=== PATIENT | female | born 1985 | race Caucasian/White ===

== ENCOUNTER 2016-11-05 15:01 | Emergency (ER) | payer OTHER ==
[~2016-11-05] VITALS: Ht 165.1 cm; Wt 68.0 kg
[2016-11-05] MEDS ORDERED: NAPROSYN500 MG PO (15:54)
[2016-11-05] MEDS ORDERED: HYDROCODONE-AP1 EAC6 PO (15:54)
== END 2016-11-05 16:23 | disposition home or self-care (01) ==
LOC: ER 15:01
DX: K08.89 Other specified disorders of teeth and supporting structures (principal); F17.210 Nicotine dependence, cigarettes, uncomplicated; Z90.89 Acquired absence of other organs

== ENCOUNTER 2017-02-02 18:40 | Emergency (ER) | payer OTHER ==
[~2017-02-02] VITALS: Ht 167.6 cm; Wt 68.0 kg
[~2017-02-02 18:40] MED LIST: HYDROCODONE-AP1 EAC6 PO; NAPROSYN500 MG PO
[2017-02-02 18:41] VITALS: BP 143/100
== END 2017-02-02 20:11 | disposition left against medical advice (07) ==
LOC: ER 18:40
DX: M54.9 Dorsalgia, unspecified (principal); F17.210 Nicotine dependence, cigarettes, uncomplicated; Z98.890 Other specified postprocedural states; W10.9XXA Fall (on) (from) unspecified stairs and steps, initial encounter; Y93.89 Activity, other specified; Y92.89 Other specified places as the place of occurrence of the external cause; Y99.8 Other external cause status